=== PATIENT | male | born 1990 | race Caucasian/White ===

== ENCOUNTER 2016-08-23 10:27 | Emergency (ER) | payer OTHER ==
[2016-08-23] MEDS ORDERED: NORMAL SALINE 1,000 ML IV ONE (10:45)
[2016-08-23] MEDS ORDERED: MORPHINE SULFATE 4 MG/ML SYRG IV ONE ×3 (10:46→14:05)
[2016-08-23] MEDS ORDERED: PROMETHAZINE HCL 25 MG in DEXTROSE 5 % IN WATER 50 ML IV ONE ×2 (10:46)
[2016-08-23 10:59] LABS: Hematocrit 43.4 % (42.0-52.0); Hemoglobin 15.2 gm/dL (13.5-18.0); Mean Cell Volume 88.2 fl (78-100); Mean Corpuscular Hemoglobin 30.9 pg (27-31); Mean Platelet Volume 9.8 fl (6.0-9.5); Neutrophil # 1.7 K/mm3 (1.3-6.0); Neutrophil % 46.8 % (42-75.0); Platelet Count 179 K/mm3 (150-450); Red Blood Count 4.92 M/mm3 (4.7-6.0); Red Cell Distribution Width 11.9 % (11.5-14.0); White Blood Count 3.7 K/mm3 (4.0-10.5)
[2016-08-23] MEDS ORDERED: MORPHINE SULFATE 4 MG/ML SYRG ONE ×3 (11:18→14:03)
[2016-08-23 11:26] LABS: Albumin * 3.9 gm/dl (3.4-5.0); Anion Gap 12.6 mmol/L (6.8-13.8); BUN/Creatinine Ratio 12.2 (9.0-21.6); Bilirubin, Total 0.4 mg/dL (0.0-1.1); Ca. Corrected For Albumin 8.4 mg/dL (8.4-10.2); Calcium * 8.6 mg/dL (7.9-10.9); Carbon Dioxide 25.2 mmol/L (24-32.6); Potassium 3.8 mmol/L (3.4-4.6); Total Protein 7.6 gm/dL (6.2-8.2)
[2016-08-23] MEDS ORDERED: DIATRIZOATE MEGLU/DIATRIZO SOD 30 ML BTL ONE (11:35)
[2016-08-23] MEDS ORDERED: DIATRIZOATE MEGLU/DIATRIZO SOD 30 ML BTL PO ONE (11:38)
[2016-08-23 11:40] LABS: Urine Bilirubin Negative (NEGATIVE); Urine Blood Negative /ul (NEGATIVE); Urine Ketone Negative (NEGATIVE); Urine Nitrite Negative (NEGATIVE); Urine Protein Negative (NEGATIVE); Urine Specific Gravity 1.025 SP.GR. (1.005-1.030); Urine Urobilinogen Normal (NORMAL); Urine pH 6.5 pH (5.0-7.0)
[2016-08-23 11:55] LABS: Urine Appearance Clear; Urine Bacteria TRACE; Urine Color Yellow; Urine RBC None Seen /hpf (0-5); Urine WBC None Seen /hpf (0-5)
--- NOTE | 2016-08-23 14:51 | ERNOTE ---
Abdominal HPI - Narrative Date of Service: 08/23/16 - General Chief Complaint: Abdominal Pain Time Seen by Provider: 08/23/16 10:41 Source: patient Exam Limitations: no limitations - Immun/Allergies/Home Medications Immunizatons: IMMUNIZATION HX Immunizations Up to Date Yes History of Influenza Vaccine Yes Hx Pneumococcal Vaccination No Allergies/Adverse Reactions: Allergies erythromycin base [Erythromycin Base] Allergy (Severe, Verified 08/23/16 10:36) Swelling of Face guanfacine Allergy (Intermediate, Verified 08/23/16 10:36) Swelling of Throat Penicillins Allergy (Intermediate, Verified 08/23/16 10:36) Swelling of Tongue Home Medications: HOME MEDICATIONS ALPRAZolam [Xanax] 0.5 mg PO TID 10/08/14 [Last Taken Unknown] Dextroamphetamine/Amphetamine [Adderall 20 mg Tablet] 30 mg PO BID 10/08/14 [ Last Taken 10/08/14 09:00] Omeprazole [Prilosec] 40 mg PO DAILY 10/08/14 [Last Taken Unknown] Escitalopram Oxalate [Lexapro] 100 mg PO DAILY 01/02/15 [Last Taken Unknown] Benztropine Mesylate [Cogentin] 0.5 mg PO DAILY 06/21/16 [Last Taken Unknown] Haloperidol [Haldol] 5 mg PO BID 06/21/16 [Last Taken Unknown] Sertraline HCl [Zoloft] 100 mg PO DAILY 06/21/16 [Last Taken Unknown] Zolpidem Tartrate [Ambien] 5 mg PO HS 06/21/16 [Last Taken Unknown] Dicyclomine HCl [Bentyl] 10 mg PO TID PRN #20 tab 08/23/16 [Last Taken Unknown] Levofloxacin [Levaquin] 500 mg PO DAILY #10 tab 08/23/16 [Last Taken Unknown] - History of Present Illness Narrative: Patient presents to the ED for abdominal pain. He relates that he has been sick for 1.5-[address] Has been having abdominal pain all day today. Right sided. Nothing seemed to bring it on, cramping, can be severe but waxing and waning. no vomiting. States normal bowel movements. Has not seen anyone else for this. No CP or SOB. No fever. No dysuria. No other radiation of the pain. Timing: constant, other - waxing and waning Quality: severe Activities at Onset: none Modifying Factors - (Improves): Present: other - none Modifying Factors - (Worsens): Present: other - none Associated Symptoms: Absent: back pain, chest pain, diarrhea-gross blood, fever/ chills, shortness of breath Prior Abdominal Problems: Present: none Prior Treatment: Absent: recently seen Review of Systems - Review of Systems Constitutional: Absent: fever ENT: Present: sore throat Respiratory: Present: cough Cardiology: Absent: chest pain Gastrointestinal/Abdominal: Present: See HPI, abdominal pain Genitourinary: Absent: dysuria Musculoskeletal: Present: no symptoms reported Skin: Present: no symptoms reported Neurological: Present: no symptoms reported - Patient's Past Medical History Patient History - Medical: ADHD, Anxiety, Depression, GERD, Seizures, Other Patient History - Cardiac/Respiratory: No pertinent hx Patient History - Cancer: No Hx of Cancer Patient History - Surgical Procedures: EGD Patient History - Other: None - Social History Living Situations: home Does anyone smoke in the home?: Yes Smoking Status: Former smoker Alcohol Use: none Drug Use: none - Immunizations Immunizations Up to Date: Yes Hx Pneumococcal Vaccination: No History of Influenza Vaccine: Yes Physical Exam - Physical Exam General Appearance: Present: alert, no apparent distress Eye Exam: Normal inspection: bilateral, PERRL: bilateral Ears, Nose, Throat: Present: normal ENT inspection Neck: Present: normal inspection Respiratory: Present: no respiratory distress, normal breath sounds, no accessory muscle use, lungs clear, other - occasional productive cough Cardiovascular/Chest: Present: regular rate, rhythm Gastrointestinal/Abdominal: Present: normal bowel sounds, nondistended, soft, tenderness, other - Tenderness diffuse right side of abdomen. Right Lower quadrant most tender. No guarding or rebound. no peritoneal signs. Non- surgical exam. Male Genitals Exam: Present: normal genitalia. Absent: scrotum tenderness (L), testicular tenderness (L) Back Exam: Absent: CVA tenderness (R), CVA tenderness (L) Extremity Exam: Present: normal inspection Neurological Exam: Present: alert, no motor/sensory deficits, floor polisher II-XII nml as tested Skin Exam: Absent: skin rash ED Progress - Results and Orders Patient's Lab Results:: I have reviewed the patient's lab results. - Vital Signs Patient's Vital Signs:: I have reviewed the patient's vital signs. Vital Signs: Vital Signs 08/23/16 08/23/16 08/23/16 10:33 11:25 11:55 Temperature 36.4 C L Pulse Rate 98 84 74 Respiratory 16 18 18 Rate Blood Pressure 121/93 138/66 115/65 O2 Sat by Pulse 99 96 97 Oximetry - CT/Ultrasound CT/Ultrasound Narrative: I reviewed CT radiology report. - Progress/Reassessment Chief Complaint: Abdominal Pain Progress:: Improved Progress Note-Subjective: 08/23/16 14:46 Improved at 1446. No evidence of acute appendicitis. enteritis vs mesenteric adenitis. Non-surgical exam. Will cover with ABx given prolonged cough. Bentyl for cramping and close f/u. I discussed warnign signs and reasons to return as well as the need for close f/u. Stable, non-toxic, no distress. Departure - Departure Clinical Impression: Abdominal pain, Cough Disposition: Home self-care Condition: Stable Instructions: Abdominal Pain, Adult, [id number] Additional Instructions: See your doctor friday for a re-check. Rest. Fluids. Medications as directed. Return for fever, vomiting or if your condition worsens or changes in any way. Prescriptions: Dicyclomine HCl [Bentyl] 10 mg PO TID PRN #20 tab PRN Reason: Pain Levofloxacin [Levaquin] 500 mg PO DAILY #10 tab
[2016-08-23 15:30] VITALS: BP 119/66
== END 2016-08-23 16:00 | disposition home or self-care (01) ==
LOC: ER 10:27
DX: R10.9 Unspecified abdominal pain (principal); R05 Cough; Z87.891 Personal history of nicotine dependence; K21.9 Gastro-esophageal reflux disease without esophagitis; F41.9 Anxiety disorder, unspecified; F32.9 Major depressive disorder, single episode, unspecified; F90.9 Attention-deficit hyperactivity disorder, unspecified type

== ENCOUNTER 2016-11-08 11:10 | Emergency (ER) | payer OTHER ==
[2016-11-08 11:23] VITALS: BP 136/98
--- NOTE | 2016-11-08 11:43 | ERNOTE ---
Abdominal HPI - Narrative Date of Service: 11/08/16 - General Chief Complaint: Abdominal Pain Time Seen by Provider: 11/08/16 11:40 Source: patient, family - s.o. - Immun/Allergies/Home Medications Immunizatons: IMMUNIZATION HX Immunizations Up to Date Yes History of Influenza Vaccine Yes Hx Pneumococcal Vaccination No Allergies/Adverse Reactions: Allergies erythromycin base [Erythromycin Base] Allergy (Severe, Verified 08/23/16 10:36) Swelling of Face guanfacine Allergy (Intermediate, Verified 08/23/16 10:36) Swelling of Throat Penicillins Allergy (Intermediate, Verified 08/23/16 10:36) Swelling of Tongue ibuprofen Allergy (Verified 11/08/16 11:23) Home Medications: HOME MEDICATIONS Dextroamphetamine/Amphetamine [Adderall 20 mg Tablet] 30 mg PO BID 10/08/14 [ Last Taken 10/08/14 09:00] Haloperidol [Haldol] 5 mg PO BID 06/21/16 [Last Taken Unknown] Dexlansoprazole [Dexilant] 60 mg PO DAILY 11/08/16 [Last Taken Unknown] Mirtazapine [Mirtazapine (Remeron)] 15 mg PO DAILY 11/08/16 [Last Taken Unknown] Prazosin HCl 2 mg PO 11/08/16 [Last Taken Unknown] - History of Present Illness Narrative: R SIDE ABDOMINAL PAIN WITH NAUSEA, NO V. OR D. , STARTING 1 [employer]. NO FEVER. DENIES UTI SX. STATES HE WAS JUST UP AT [facility] AT [address] AVALOS HAD HIM DO SOME GI STUDY WHERE IS HAD TO SWALLOW CONTRAST. HE WAS THERE TO BE WORKED UP FOR COMPLAINTS OF SOME CHRONIC GERD SYMPTOMS " TO PREPARE FOR GI SURGERY". HE SAYS HE WAS OK ARIGHT AFTER THE STUDY AND HAD NOT PROBLEM UNTIL SHORTLY BEFORE COMING HERE. HE DID NOT EAT THIS MORNING BEFORE THE STUDY BUT DID HAVE SOME CHIPS AFTER THE STUDY. HE DOES NOT KNOW THE RESULTS OF THE STUDY. Review of Systems - Review of Systems Constitutional: Present: See HPI EYE: Present: no symptoms reported ENT: Present: no symptoms reported Respiratory: Present: no symptoms reported Cardiology: Present: no symptoms reported Gastrointestinal/Abdominal: Present: See HPI, nausea, abdominal pain Genitourinary: Present: no symptoms reported Musculoskeletal: Present: no symptoms reported Skin: Present: no symptoms reported Neurological: Present: no symptoms reported Endocrine: Present: no symptoms reported Hematologic/Lymphatic: Present: no symptoms reported Psych: Present: no symptoms reported All Other Systems: All systems neg except as marked - Patient's Past Medical History Patient History - Medical: ADHD, Anxiety, Depression, GERD, Seizures, Other Patient History - Cardiac/Respiratory: No pertinent hx Patient History - Cancer: No Hx of Cancer Patient History - Surgical Procedures: EGD Patient History - Other: None - Social History Living Situations: spouse Abuse History: No History of abuse Psych History: Hx of Anxiety, Hx of Depression Does anyone smoke in the home?: Yes Smoking Status: Current every day smoker Have you smoked in the past 12 months: Yes Alcohol Use: none Drug Use: none - Immunizations Immunizations Up to Date: Yes Hx Pneumococcal Vaccination: No History of Influenza Vaccine: Yes Physical Exam - Physical Exam General Appearance: Present: wd/wn, alert, mild distress - HOLD HIS RIGHT HAND UP AGAINST HIS RUQ. IS [place] OTHERWISE HEALTHY LOOKING YOUNG MAN WITH VSS. Respiratory: Present: no respiratory distress, normal breath sounds, no accessory muscle use, chest nontender, lungs clear Cardiovascular/Chest: Present: regular rate, rhythm, no murmur, normal peripheral pulses Gastrointestinal/Abdominal: Present: normal bowel sounds, nondistended, soft, no organomegaly, tenderness - MILD R UQ TENDERNESS WITH MINIMAL GUARDING AND NO REBOUND. ABD = NORMAL TO PERCUSSION. Back Exam: Present: normal inspection, normal range of motion, no CVA tenderness , no vertebral tenderness Neurological Exam: Present: alert, oriented Skin Exam: Present: normal color ED Progress - Results and Orders Patient's Lab Results:: I have reviewed the patient's lab results. Results and Orders: LABS AND URINE ARE NORMAL EXCEPT FOR GLUC = 121 - Vital Signs Vital Signs: Vital Signs 11/08/16 11:18 Temperature 36.7 C Pulse Rate 108 H Respiratory 16 Rate Blood Pressure 136/98 O2 Sat by Pulse 96 Oximetry - X-Ray X-Ray #1 X-Ray: abdomen Interpretation: Reviewed by me - RETAINED CONTRAST , PRESUMABLY FROM STUDY DONE EARLIER THIS MORNING IN [place], WITH NO ABNORMALITY NOTED. - Progress/Reassessment Chief Complaint: Abdominal Pain Plan - Plan Plan: WHEN I WENT TO ORDER HIM A GI COCKTAIL THE NURSES TOLD ME HE AND HIS SIG. OTHER HAD WALKED OUT. OTHERS FAMILIAR WITH THEM REPORTED THAT THEY HAVE A HISTORY OF SHOPPING FOR DOCTORS TO GIVE THEM PAIN MEDS. THOUGH THEY DID NOT EXPRESS A WISH TO BE GIVEN THEM TODAY FROM ME. Departure - Departure Clinical Impression: Right upper quadrant abdominal pain Disposition: Against medical advice Additional Instructions: PT ELOPED BEFORE I COULD GIVE THEM RESULTS OF THE XRAY AND LABS.
[2016-11-08 11:45] LABS: Hematocrit 41.1 % (42.0-52.0); Hemoglobin 14.8 gm/dL (13.5-18.0); Mean Cell Volume 85.1 fl (78-100); Mean Corpuscular Hemoglobin 30.6 pg (27-31); Mean Platelet Volume 9.6 fl (6.0-9.5); Neutrophil # 2.7 K/mm3 (1.3-6.0); Neutrophil % 54.2 % (42-75.0); Platelet Count 183 K/mm3 (150-450); Red Blood Count 4.83 M/mm3 (4.7-6.0); Red Cell Distribution Width 11.9 % (11.5-14.0); White Blood Count 5.1 K/mm3 (4.0-10.5)
[2016-11-08 11:46] LABS: Urine Bilirubin Negative (NEGATIVE); Urine Blood Negative /ul (NEGATIVE); Urine Ketone Negative (NEGATIVE); Urine Nitrite Negative (NEGATIVE); Urine Protein Negative (NEGATIVE); Urine Specific Gravity >=1.030 SP.GR. (1.005-1.030); Urine Urobilinogen Normal (NORMAL)
[2016-11-08 11:56] LABS: Urine Appearance Clear; Urine Bacteria None Seen; Urine Color Yellow; Urine RBC None Seen /hpf (0-5); Urine WBC None Seen /hpf (0-5)
[2016-11-08 11:58] LABS: Albumin * 4.3 gm/dl (3.4-5.0); BUN/Creatinine Ratio 7.9 (9.0-21.6); Bilirubin, Total 0.7 mg/dL (0.0-1.1); Calcium * 8.6 mg/dL (7.9-10.9); Carbon Dioxide 28.9 mmol/L (24-32.6); Potassium 3.9 mmol/L (3.4-4.6); Total Protein 7.5 gm/dL (6.2-8.2)
--- OUTSIDE RECORDS SUMMARY | 2016-11-08 12:08 | XMS REPORT | Continuity of Care Document ---
:1990 Author Organization [facility] [place] [address] Care Team Providers Name Role Phone Provider, None Per Patient Primary Care Provider Unavailable Source Comments This disclosure is being made pursuant to the [employer] program and maynot contain all information available regarding this patient.[facility] Active Allergies and Adverse Reactions Allergen Noted Date Severity Reactions Comments Erythromycin 06/03/2015 Low Rash Guaifenex G 06/03/2015 Other (See Comments) Penicillins 06/03/2015 Low Rash Current Medications Be aware that medications may not be up to date as of this document. Alwaysverify current medications with the patient. Prescription Sig. Disp. Refills Start Date End Date Status ARIPiprazole (ABILIFY) Take 1 tablet by 30 tablet 0 06/06/2015 Active 5 MG tablet mouth daily. escitalopram (LEXAPRO) Take 1 tablet by 30 tablet 0 06/06/2015 Active 10 MG tablet mouth daily. Active Problems Problem Noted Date Marijuana abuse 06/06/2015 Psychosis 06/04/2015 Social History Tobacco Use Types Packs/Day Years Used Date Current Every Day Smoker Alcohol Use Drinks/Week oz/Week Comments Yes 1-2 times per month Last Filed Vital Signs Vital Sign Reading Time Taken Blood Pressure 127/70 06/06/2015 8:01 AM [employer] Pulse 97 06/06/2015 8:01 AM [employer] Temperature 36.3 C (97.3 F) 06/06/2015 8:00 AM [employer] Respiratory Rate 14 06/06/2015 8:00 AM [employer] Height 1.71 m (5' 7.32") 06/03/2015 5:00 AM [employer] Weight 70.7 kg (155 lb 13.8 oz) 06/03/2015 5:00 AM [employer] Body Mass Index 24.18 06/03/2015 5:00 AM [employer] Oxygen Saturation - - Plan of Care Health Maintenance Due Date Last Done Comments HPV Vaccine (9-26YO) (1 of 3 - Male 3 Dose Series) 2003 Tetanus/Pertussis (1 - Tdap) 2011 Retired-INFLUENZA VACCINE 03/28/2016 Results from Last 3 Months Not on file
--- OUTSIDE RECORDS SUMMARY | 2016-11-08 12:09 | XMS REPORT | Continuity of Care Document ---
:1990 Author Organization [facility] ([facility]) [place] [address] Phone [phone] Care Team Providers Name Role Phone [facility] Primary Care Provider [phone] Source Comments This disclosure is being made pursuant to the Care Everywhere program, applicable federal and state laws, and may not contain all informaitonavailable regarding this patient.[facility] ([facility]) Active Allergies and Adverse Reactions Allergen Noted Date Severity Reactions Comments Erythromycin 07/27/2011 Upper Airway Edema,Rash Guaifenesin-Sodium Citrate 10/03/2014 Bradycardia Penicillins 07/27/2011 Upper Airway Edema,Rash Current Medications Prescription Sig. Disp. Refills Start Date End Date Status ALPRAZolam 0.5 mg Take 0.5 mg by mouth Active tablet 2 times daily as needed. Indications: ANXIETY, Seizures albuterol 90 Use 2 Puffs by Active mcg/Actuation inhalation every 6 inhaler hours as needed. dextroamphetamine-am Take 40 mg by mouth Active phetamine 20 mg 2 times daily. tablet Indications: ATTENTION-DEFICIT HYPERACTIVITY DISORDER lurasidone (LATUDA) Take 60 mg by mouth Active 60 mg tablet daily. Take with food. Indications: Mood stabilization DULoxetine 30 mg XR Take 30 mg by mouth Active capsule at bedtime. Tapering this medication to off; 5 days of therapy remaining as of 10/24/14. omeprazole 40 mg Take 40 mg by mouth Active enteric coated daily. Indications: capsule HEARTBURN traZODone 150 mg Take 225 mg by mouth Active tablet at bedtime. Indications: Insomnia escitalopram oxalate Take 1 Tab by mouth 30 Tab 3 10/26/2014 Active 20 mg tablet daily. Indications: ANXIETY WITH DEPRESSION hydrOXYzine HCl 25 Take 1 Tab by mouth 90 Tab 0 10/25/2014 Active mg tablet every 6 hours as needed. Indications: ANXIETY HYDROcodone-acetamin Take 1-2 tablets by 20 tablet 0 10/04/2015 Active ophen 5-325 mg per mouth every 6 hours tablet as needed for pain. HYDROcodone-acetamin Take 1-2 tablets by 10 tablet 0 07/30/2016 Active ophen 5-325 mg per mouth every 6 hours tablet as needed for pain. Active Problems Problem Noted Date Abdominal pain, right lower quadrant 08/15/2016 Conversion disorder 10/25/2014 Panic disorder without agoraphobia 10/25/2014 Suicidal intent 07/27/2011 Depression 07/27/2011 Most Recent Encounters Date Type Specialty Providers Description 08/15/2016 Hospital Encounter Emergency Medicine Noreen Lundy, Dx: Abdominal pain, MD right lower quadrant (Primary Dx) Immunizations Name Dates Previously Given Next Due Influenza, PF 07/31/2011 Social History Tobacco Use Types Packs/Day Years Used Date Current Every Day Smoker Cigarettes 1 10 Smokeless Tobacco: Never Used Tobacco Cessation:Ready to Quit: No; Counseling Given: Yes Comments: Last Filed Vital Signs Vital Sign Reading Time Taken Blood Pressure 140/97 08/15/2016 4:58 PM TAPE CUTTING MACHINE OPERATOR Pulse 105 08/15/2016 4:58 PM TAPE CUTTING MACHINE OPERATOR Temperature 37 C (98.6 F) 08/15/2016 4:58 PM TAPE CUTTING MACHINE OPERATOR Respiratory Rate 14 08/15/2016 4:58 PM TAPE CUTTING MACHINE OPERATOR Height 1.702 m (5' 7") 10/04/2015 12:52 PM TAPE CUTTING MACHINE OPERATOR Weight 71.668 kg (158 lb) 10/04/2015 12:52 PM TAPE CUTTING MACHINE OPERATOR Body Mass Index 24.74 10/04/2015 12:52 PM TAPE CUTTING MACHINE OPERATOR Oxygen Saturation 97% 08/15/2016 4:58 PM TAPE CUTTING MACHINE OPERATOR Plan of Care Health Maintenance Due Date Last Done Comments Hepatitis B Vaccine (1 of 3 - Primary Series) 1990 HPV Vaccine (1 of 3 - Male 3 Dose Series) 2003 Tdap Vaccine 2003 Lipid Disorder Screening 2010 MMR Vaccine 2010 Td Vaccine 2010 Varicella Vaccine (1 of 2 - Adult - No Evidence of 2010 Immunity) Pneumococcal Vaccine (1 of 1 - PPSV23) 2011 Influenza Vaccine: Seasonal (#1) 02/26/2016 07/31/2011 Results from Last [address] ABDOMEN& PELVIS W CONTRAST (47150) (08/15/2016 7:35 PM) Impressions Impression: 1. No CT evidence of acute appendicitis. 2. Slight mesenteric fat stranding in the anterior right mid abdomen, nonspecific. Appearance does not favor epiploic appendagitis. 3. 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 This final report is in agreement with the critical and emergent preliminary findings reported by the vice president planning environmental field technician. Narrative Procedure: CT ABDOMEN & PELVIS W CONTRAST ([id number]) Clinical Indication: Abdominal pain, right lower quadrant. Possible appendicitis. Technique: CT exam of the abdomen and pelvis is performed following the uneventful administration of 97 cc Isovue-370 IV contrast. Comparison: None. Findings: Lower chest: The visualized lung bases are clear. Liver: Normal Bile ducts: Not dilated. Gallbladder: Normal. Pancreas: Normal Spleen: Normal Adrenal glands: Normal Kidneys: 8 mm cyst in lower pole of right kidney. 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 Ureters: Normal Bladder: Normal Aorta: Normal Retroperitoneum: No lymphadenopathy. Peritoneum: No ascites. No free air. Mesentery: Subcentimeter lymph nodes in the right lower quadrant for example on image [id number] there is a lymph node that measures 9 mm. Slight mesenteric or omental fat stranding in the anterior right mid abdomen. Stomach: Not distended. Small bowel: Not distended. Colon: Not distended. Appendix: Normal (4-46). Extraperitoneal pelvis: No lymphadenopathy. Prostate: Not enlarged. Abdominal wall: Normal Bones: No acute fracture or destructive bone lesion. Procedure Note Waldo, Incoming Imaging Results - FriAug 16, 2016 7:03 PM TAPE CUTTING MACHINE OPERATOR Procedure: CT ABDOMEN & PELVIS W CONTRAST ([id number]) Clinical Indication: Abdominal pain, right lower quadrant. Possible appendicitis. Technique: CT exam of the abdomen and pelvis is performed following the uneventful administration of 97 cc Isovue-370 IV contrast. Comparison: None. Findings: Lower chest: The visualized lung bases are clear. Liver: Normal Bile ducts: Not dilated. Gallbladder: Normal. Pancreas: Normal Spleen: Normal Adrenal glands: Normal Kidneys: 8 mm cyst in lower pole of right kidney. 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 Ureters: Normal Bladder: Normal Aorta: Normal Retroperitoneum: No lymphadenopathy. Peritoneum: No ascites. No free air. Mesentery: Subcentimeter lymph nodes in the right lower quadrant for example on image [id number] there is a lymph node that measures 9 mm. Slight mesenteric or omental fat stranding in the anterior right mid abdomen. Stomach: Not distended. Small bowel: Not distended. Colon: Not distended. Appendix: Normal (4-46). Extraperitoneal pelvis: No lymphadenopathy. Prostate: Not enlarged. Abdominal wall: Normal Bones: No acute fracture or destructive bone lesion. IMPRESSION Impression: 1. No CT evidence of acute appendicitis. 2. Slight mesenteric fat stranding in the anterior right mid abdomen, nonspecific. Appearance does not favor epiploic appendagitis. 3. 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 This final report is in agreement with the critical and emergent preliminary findings reported by the vice president planning environmental field technician. MICROSCOPIC URINALYSIS (08/15/2016 5:41 PM) Component Value Range White Blood Cells, Urine 1 0-5 /HPF Red Blood Cells, Urine <1 0-2 /HPF Specimen Urine URINALYSIS WITH REFLEX CULTURE (08/15/2016 5:41 PM) Component Value Range Color, Urine Yellow Straw, Pale Yellow, Yellow, Clear, None Clarity, Urine Clear Clear pH, Urine 7.0 <9.0 Spec [place], Urine 1.020 1.000-1.030 Glucose, Urine Negative Negative Blood, Urine Negative Negative Ketones, Urine Negative Negative Protein, Urine Negative Negative Urobilinogen, Urine 2+(A) Normal Bilirubin, Urine Negative Negative Leukocyte Esterase, Urine Negative Negative Nitrite, Urine Negative Negative Specimen Urine URINALYSIS WITH REFLEXED CULTURE AND MICROSCOPIC EXAM (08/15/2016 5:41 PM) Specimen Culture - Urine, Midstream clean catch Narrative The following orders were created for panel order URINALYSIS WITH REFLEXED CULTURE AND MICROSCOPIC EXAM. Procedure Abnormality Status --------- ------ URINALYSIS WITH REFLEX C...[[id number]]AbnormalFinal result MICROSCOPIC URINALYSIS[[id number]] Normal Final result URINE CULTURE, REFLEXED[[id number]] Please view results for these tests on the individual orders. DIFFERENTIAL (08/15/2016 5:40 PM) Component Value Range % Neutrophils-Auto Diff 57.7 % Neutrophils-Auto Diff 3800 5738-3247 /MM3 % Lymphocytes-Auto Diff 33.1 % Lymphocytes-Auto Diff 2180 875-3300 /MM3 % Monocytes-Auto Diff 7.0 % Monocytes-Auto Diff 460 130-860 /MM3 % Eosinophils-Auto Diff 1.4 % Eosinophils-Auto Diff 90 40-390 /MM3 % Basophils 0.5 % Basophils-Auto Diff 30 10-136 /MM3 % Immature Granulocytes-Auto Diff 0.3 % Immature Granulocytes-Auto Diff 20 /MM3 Specimen Whole Blood CBC (COMPLETE BLOOD COUNT) (08/15/2016 5:40 PM) Component Value Range WBC Count 6.6 3.7-10.5 K/MM3 RBC Count 4.64 4.50-6.20 M/MM3 Hemoglobin 14.7 13.2-17.7 g/dL Hematocrit 41 40-52 % MCV (Mean Corpuscular Volume) 88 82-99 FL MCH (Mean Corpuscular Hemoglobin) 32 25-35 PG MCHC (Mean Corpuscular Hemoglobin Concentration) 36 32-36 % Platelet Count 170 150-400 K/MM3 MPV (Mean Platelet Volume) 10.4 9.4-12.3 FL RBC Dist Width-STD 38.6 35.1-43.9 FL RBC Distrib Width 11.9 9.0-14.5 % Nucleated RBC 0 /100 WBC Specimen Whole Blood LACTIC ACID, WHOLE BLOOD ([facility]) (08/15/2016 5:40 PM) Component Value Range Lactic Acid, Whole Blood 1.2Comment: 0.5-2.0 mEq/L Glycolate, the principle toxic metabolite of ethylene glycol, can cause artifactual elevation of measured lactate. Specimen Blood PT/INR (PROTHROMBIN TIME/INR) VENOUS (08/15/2016 5:40 PM) Component Value Range PT (Prothrombin Time) 10 9-12 secs INR 1.0 <4.0 Specimen Blood PTT (PARTIAL THROMBOPLASTIN TIME) (08/15/2016 5:40 PM) Component Value Range PTT 26 22-31 secs Specimen Blood LIVER PANEL (08/15/2016 5:40 PM) Component Value Range Bilirubin Total 0.5 <=1.2 mg/dL AST 38Comment: 0-40 U/L Adult reference ranges updated on 11/26/13 at 830am ALT 56(H)Comment: 0-41 U/L The upper limit of normal for alanine aminotransferase (ALT) reference ranges for adults is controversial with some authorities recommending limit as low as 30 U/L for males and 19 U/L for females. Th ere is increased incidence of subclinical liver disease (e.g., early steatohepatitis) in patients with ALT values in the range of 31-41 U/L for males and 20-33 U/L for females. ALT values should alway s be interpreted in conjunction with clinical history, physical examination findings, and, if applicable, data from other diagnostic tests. ALP 56 40-129 U/L GGT 99(H) 8-61 U/L Albumin 4.4 3.4-4.8 g/dL Total Protein 7.4 6.0-8.0 g/dL Specimen Blood ERYTHROCYTE SEDIMENTATION RATE (08/15/2016 5:40 PM) Component Value Range ESR (Erythrocyte Sedimentation Rate) 2 0-15 mm/Hr Specimen Whole Blood C-REACTIVE PROTEIN (08/15/2016 5:40 PM) Component Value Range CRP (C-Reactive Protein) <0.5 <=0.5 mg/dL Specimen Blood CBC WITH DIFFERENTIAL (08/15/2016 5:40 PM) Specimen Whole Blood Narrative The following orders were created for panel order CBC WITH DIFFERENTIAL. Procedure Abnormality Status --------- ------ CBC (COMPLETE BLOOD COUNT)[[id number]] Final result DIFFERENTIAL[[id number]] Final result Please view results for these tests on the individual orders. BASIC METABOLIC PANEL W/ CALCIUM (CHEM 8) (08/15/2016 5:40 PM) Component Value Range Sodium 141 135-145 mEq/L Chloride 104 95-107 mEq/L CO2 24 22-29 mEq/L Anion Gap 13 8-18 mEq/L BUN 11 10-20 mg/dL Creatinine 0.9Comment: 0.6-1.2 mg/dL Creatinine switched to enzymatic method on 12/04/2010.GFR equation switched to IDMS-traceable MDRD equation on 12/04/2010. Calculated GFR values are not valid in clinical settings where serum creatinine is changing. Glucose 97Comment: 65-99 mg/dL The Expert Committee on the Diagnosis and Classification of Diabetes has defined impaired fasting glucose as greater than or equal to 100 mg/dL but less than 126 mg/dL.(Diabetes Care 28 (Suppl 1)S41,2005) Calcium 9.0 8.5-10.5 mg/dL Potassium Hemolyzed(A)Comment: mEq/L For inpatient phlebotomy redraws, please contact pager #[phone] between the hours of 05:00 to 13:00. Calculated GFR >90 >60 mL/min/1.73 m2 Specimen Blood
--- OUTSIDE RECORDS SUMMARY | 2016-11-08 12:09 | XMS REPORT | Summary of Care ---
:1990 Author Organization [facility] Team Providers Name Role Phone Physician, No PCP Primary Care Physician Unavailable Problem List Condition Effective Dates Status Health Status Informant Asthma(Confirmed) Active patient ADHD (attention deficit hyperactivity Active patient disorder)(Confirmed) Pseudoseizures(Confirmed) Active patient Dissociative disorder or Active patient reaction(Confirmed) GERD (gastroesophageal reflux Active patient disease)(Confirmed) Depression with anxiety(Confirmed) Active patient PTSD (post-traumatic stress Active patient disorder)(Confirmed) Encounter 12/17/14 - 12/21/14 [place] [address]- [facility] Discharge Disposition: Discharged to Home or Self Care Attending Physician: oRsalee Camara NP Admitting Physician: Jonathan HA, Kian Leary Vital Signs Most recent to oldest (Reference Range): 1 Respiratory Rate (12-18 Br PM) 18 Br PM (12/21/14 7:00 AM) Most recent to oldest (Reference Range): 1 Pulse Rate (60-100 BPM) 92 BPM (12/21/14 8:06 AM) Most recent to oldest (Reference Range): 1 Blood Pressure (90-140/65-90 mmHg) 122/71mmHg (12/21/14 7:00 AM) Most recent to oldest (Reference Range): 1 Temperature Celsius (36.1-38 Degrees C) 36.6 Degrees C (12/21/14 7:00 AM) Most recent to oldest (Reference Range): 1 Height 170.18 cm (12/17/14 10:55 PM) Most recent to oldest (Reference Range): 1 Weight 67.9 kg (12/17/14 11:15 PM) Most recent to oldest (Reference Range): 1 Body Mass Index 23 kg/m2 (12/17/14 10:55 PM) Allergies, Adverse Reactions, Alerts Substance Reaction Severity Status erythromycin Active penicillins Swelling of throat Active Medications ALPRAZolam (Xanax 0.5 mg oral tablet) 1 Tab, By Mouth, 3 Times a day, As Needed, Anxiety, Refills: 0 amphetamine-dextroamphetamine (Adderall) 20 mg, By Mouth, Twice a day, with breakfast and lunch, Refills: 0 ARIPiprazole (ARIPiprazole 5 mg oral tablet) 1 Tab, By Mouth, once a day, Refills: 1 Ordering provider: Rosalee Camara NP cyclobenzaprine (Flexeril) 10 mg, By Mouth, 3 Times a day, As Needed, Pain/Discomfort, Refills: 0 escitalopram (Lexapro) 20 mg, By Mouth, once a day, Refills: 0 HydrOXYzine 25 mg, By Mouth, every 6 hours, Refills: 0 omeprazole (PriLOSEC Tab) 40 mg, By Mouth, once a day, Refills: 0 prazosin (prazosin 1 mg oral capsule) 1 Cap, By Mouth, once a day, Refills: 0 TraZODone (traZODone 150 mg oral tablet) 2 Tab, By Mouth, Bedtime, Refills: 0 Ordering provider: Rosalee Camara NP Results No data available for this section Immunizations Vaccine Date Refusal Reason influenza virus vaccine 05/28/14 Procedures Procedure Date Related Diagnosis Body Site [place] tooth 2013 Social History No data available for this section Assessment and Plan No data available for this section
== END 2016-11-08 12:15 | disposition left against medical advice (07) ==
LOC: ER 11:10
DX: R10.11 Right upper quadrant pain (principal); Z72.0 Tobacco use; K21.9 Gastro-esophageal reflux disease without esophagitis; F41.8 Other specified anxiety disorders; Z53.29 Procedure and treatment not carried out because of patient's decision for other reasons

== ENCOUNTER 2016-12-31 12:57 | Emergency (ER) | payer OTHER ==
[2016-12-31 13:05] VITALS: BP 146/81
--- OUTSIDE RECORDS SUMMARY | 2016-12-31 13:25 | XMS REPORT | Continuity of Care Document ---
:1990 Author Organization [employer] [place] [address] Care Team Providers Name Role Phone Provider, None Per Patient Primary Care Provider Unavailable Source Comments This disclosure is being made pursuant to the [employer] program and maynot contain all information available regarding this patient.[employer] Active Allergies and Adverse Reactions Allergen Noted [...] Taken Blood Pressure 127/70 06/06/2015 8:01 AM JOINER APPRENTICE Pulse 97 06/06/2015 8:01 AM JOINER APPRENTICE Temperature 36.3 C (97.3 F) 06/06/2015 8:00 AM JOINER APPRENTICE Respiratory Rate 14 06/06/2015 8:00 AM JOINER APPRENTICE Height 1.71 m (5' 7.32") 06/03/2015 5:00 AM JOINER APPRENTICE Weight 70.7 kg (155 lb 13.8 oz) 06/03/2015 5:00 AM JOINER APPRENTICE Body Mass Index 24.18 06/03/2015 5:00 AM JOINER APPRENTICE Oxygen Saturation - - Plan of Care Health Maintenance Due Date Last Done Comments HPV Vaccine (9-26YO) (1 of 3 - Male 3 Dose Series) 2003 Tetanus/Pertussis (1 - Tdap) 2011 Retired-INFLUENZA VACCINE 03/28/2016 Results from Last 3 Months Not on file
--- OUTSIDE RECORDS SUMMARY | 2016-12-31 13:25 | XMS REPORT | Continuity of Care Document ---
:1990 Author Organization [facility] ([facility]) Address [place] [address] Phone [phone] Care Team Providers Name Role Phone Kevin-[facility] Primary Care Provider [phone] Source Comments This disclosure is being made pursuant to the Care Everywhere program, applicable federal and state laws, and may not contain all informaitonavailable regarding this patient.[facility] ([facility]) Active Allergies and Adverse Reactions Allergen Noted Date Severity Reactions Comments Erythromycin 07/27/2011 Upper Airway Edema,Rash Guaifenesin-Sodium Citrate 10/03/2014 Bradycardia Penicillins 07/27/2011 Upper Airway Edema,Rash Current Medications Prescription Sig. Disp. Refills Start Date End Date Status ALPRAZolam 0.5 mg Take 0.5 mg by Active tablet mouth 2 times daily as needed. Indications: ANXIETY, Seizures albuterol 90 Use 2 Puffs by Active mcg/Actuation inhaler inhalation every 6 hours as needed. dextroamphetamine-amp Take 40 mg by mouth Active hetamine 20 mg tablet 2 times daily. Indications: ATTENTION-DEFICIT HYPERACTIVITY DISORDER lurasidone (LATUDA) Take [...] traZODone 150 mg Take 225 mg by Active tablet mouth at bedtime. Indications: Insomnia escitalopram oxalate Take 1 Tab by mouth 30 Tab 3 10/26/2014 Active 20 mg tablet daily. Indications: ANXIETY WITH DEPRESSION hydrOXYzine HCl 25 mg Take 1 Tab by mouth 90 Tab 0 10/25/2014 Active tablet every 6 hours as needed. Indications: ANXIETY HYDROcodone-acetamino Take 1-2 tablets by 20 tablet 0 10/04/2015 Active phen 5-325 mg per mouth every 6 hours tablet as needed for pain. HYDROcodone-acetamino Take 1-2 tablets by 10 tablet 0 07/30/2016 Active phen 5-325 mg per mouth every 6 hours tablet as needed for pain. ondansetron 4 mg Take 1 tablet (4 mg 6 tablet 0 11/10/2016 Active disintegrating tablet total) by mouth every 6 hours as needed. Active Problems Problem Noted Date Abdominal pain, right lower quadrant 08/15/2016 Conversion disorder 10/25/2014 Panic disorder without agoraphobia 10/25/2014 Suicidal intent 07/27/2011 Depression 07/27/2011 Most Recent Encounters Date Type Specialty Providers Description 11/10/2016 Hospital Encounter Emergency Medicine Elva Bush, Dx: SABINE pain (Primary Dx) Immunizations Name Dates Previously Given Next Due Influenza, PF 07/31/2011 Social History Tobacco Use Types Packs/Day Years Used Date Current Every Day Smoker Cigarettes 1 10 Smokeless Tobacco: Never Used Tobacco Cessation:Ready to Quit: No; Counseling Given: Yes Comments: Last Filed Vital Signs Vital Sign Reading Time Taken Blood Pressure 139/85 11/10/2016 6:07 PM CDT Pulse 83 11/10/2016 6:07 PM CDT Temperature 36.4 C (97.5 F) 11/10/2016 6:07 PM CDT Respiratory Rate 16 11/10/2016 6:07 PM CDT Height 1.702 m (5' 7") 10/04/2015 12:52 PM STAFF COUNSEL Weight 71.668 kg (158 lb) 10/04/2015 12:52 PM STAFF COUNSEL Body Mass Index 24.74 10/04/2015 12:52 PM STAFF COUNSEL Oxygen Saturation 97% 11/10/2016 6:07 PM CDT Plan of Care Health Maintenance Due Date Last Done Comments Hepatitis B Vaccine (1 of 3 - 1990 Primary Series) Tdap Vaccine 2003 Lipid Disorder Screening 2010 MMR Vaccine 2010 Td Vaccine 2010 Varicella Vaccine (1 of 2 - Adult 2010 - No Evidence of Immunity) Pneumococcal Vaccine (1 of 1 - 2011 PPSV23) Influenza Vaccine: Seasonal 02/25/2017 07/31/2011 (Season Ended) HPV Vaccine Aged Out No longer eligible based on patient's age to complete this topic Results from Last 3 Months US ABDOMEN LIMITED (36551) (11/10/2016 5:06 PM) Impressions Impression: 1. Grossly normal RUQ ultrasound. 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 --- Final --- Narrative [facility] Department of Radiology Ultrasound Division [address] [place] [address] ULTRASOUND REPORT NAME:AROLDO TRAVIS Date of Service: 11/10/2016 MRN NO.: [id number] Review Date: 11/11/2016 Patient's : 1990 Resident/Tech: [id number] Katerina Deluna Patient's Age: 26 years Referring MD:TIAN LOWRY Indication: RUQ pain, gall stone on POCUS, eval for cholecystitis Technique: Right upper quadrant grayscale ultrasound. Comparison: None. Findings: Liver: +---------+ + +-------+ + :Size (cm):Echogenicity:Echotexture:Shape:Vascularity: +---------+ + +-------+ + :16.3 :Normal. :Normal.:Normal.:Normal.: +---------+ + +-------+ + Gallbladder: The gallbladder is normal in size, shape, and wall thickness without stones, sludge or masses. There is no pericholecystic fluid. Sonographic Mitchell's sign was negative. + +-----+ :Gallbladder wall:2 mm.: + +-----+ Spleen: The spleen is normal in size and appearance. Spleen measures 7.2 x 4.9 x 7.8 cm. Pancreas: The pancreas is not well visualized. Procedure Note Waldo, Incoming Imaging Results - FriNov 11, 2016 10:33 AM CDT [facility] Department of Radiology Ultrasound Division [address] [place] [address] ULTRASOUND REPORT NAME: AROLDO TRAVIS Date of Service: 11/10/2016 MRN NO.: [id number] Review Date: 11/11/2016 Patient's : 1990 Resident/Tech: [id number] Katerina Deluna Patient's Age: 26 years Referring MD: TIAN LOWRY Indication: RUQ pain, gall stone on POCUS, eval for cholecystitis Technique: Right upper quadrant grayscale ultrasound. Comparison: None. Findings: Liver: +---------+ + +-------+ + :Size (cm):Echogenicity:Echotexture:Shape :Vascularity: +---------+ + +-------+ + :16.3 :Normal. :Normal. :Normal.:Normal. : +---------+ + +-------+ + Gallbladder: The gallbladder is normal in size, shape, and wall thickness withoutstones, sludge or masses. There is no pericholecystic fluid. Sonographic Mitchell'ssign was negative. + +-----+ :Gallbladder wall:2 mm.: + +-----+ Spleen: The spleen is normal in size and appearance. Spleen measures 7.2 x 4.9 x7.8 cm. Pancreas: The pancreas is not well visualized. IMPRESSION Impression: 1. Grossly normal RUQ ultrasound. This final report is in agreement with the critical and emergentpreliminary findings reported by the secretary to the vice president electrical contractor. --- Final --- DIFFERENTIAL (11/10/2016 3:44 PM) Component Value Range % Neutrophils-Auto Diff 61.8 % Neutrophils-Auto Diff 4170 1242-7224 /MM3 % Lymphocytes-Auto Diff 29.7 % Lymphocytes-Auto Diff 2000 875-3300 /MM3 % Monocytes-Auto Diff 6.4 % Monocytes-Auto Diff 430 130-860 /MM3 % Eosinophils-Auto Diff 0.9 % Eosinophils-Auto Diff 60 40-390 /MM3 % Basophils 0.6 % Basophils-Auto Diff 40 10-136 /MM3 % Immature Granulocytes-Auto Diff 0.6 % Immature Granulocytes-Auto Diff 40 /MM3 Specimen Whole Blood CBC (COMPLETE BLOOD COUNT) (11/10/2016 3:44 PM) Component Value Range WBC Count 6.7 3.7-10.5 K/MM3 RBC Count 4.91 4.50-6.20 M/MM3 Hemoglobin 15.4 13.2-17.7 g/dL Hematocrit 42 40-52 % MCV (Mean Corpuscular Volume) 85 82-99 FL MCH (Mean Corpuscular Hemoglobin) 31 25-35 PG MCHC (Mean Corpuscular Hemoglobin Concentration) 37(H) 32-36 % Platelet Count 196 150-400 K/MM3 MPV (Mean Platelet Volume) 10.1 9.4-12.3 FL RBC Dist Width-STD 37.4 35.1-43.9 FL RBC Distrib Width 12.4 9.0-14.5 % Nucleated RBC 0 /100 WBC Specimen Whole Blood AMYLASE (11/10/2016 3:44 PM) Component Value Range Amylase 59Comment: 0-100 U/L Amylase assay methodology and reference range changed 11/16/09. Specimen Blood LIPASE (11/10/2016 3:44 PM) Component Value Range Lipase 44 13-60 U/L Specimen Blood COMPREHENSIVE METABOLIC PANEL (CMP) (11/10/2016 3:44 PM) Component Value Range Sodium 140 135-145 mEq/L Chloride 101 95-107 mEq/L CO2 24 22-29 mEq/L BUN 9(L) 10-20 mg/dL Creatinine 0.8Comment: 0.6-1.2 mg/dL Creatinine switched to enzymatic method on 12/04/2010.GFR equation switched to IDMS-traceable MDRD equation on 12/04/2010. Calculated GFR values are not valid in clinical settings where serum creatinine is changing. Glucose 116(H)Comment: 65-99 mg/dL The Expert Committee on the Diagnosis and Classification of Diabetes has defined impaired fasting glucose as greater than or equal to 100 mg/dL but less than 126 mg/dL.(Diabetes Care 28 (Suppl 1)S41,2005) Calcium 9.2 8.5-10.5 mg/dL Total Protein 7.2 6.0-8.0 g/dL Albumin 4.5 3.4-4.8 g/dL AST 27Comment: 0-40 U/L Adult reference ranges updated on 06/22/13 at 830am ALP 57 40-129 U/L Bilirubin Total 0.5 <=1.2 mg/dL ALT 24Comment: 0-41 U/L The upper limit of normal [...] if applicable, data from other diagnostic tests. Potassium Hemolyzed(A)Comment: mEq/L For inpatient phlebotomy redraws, please contact pager #[phone] between the hours of 05:00 to 13:00. Anion Gap 15 mEq/L Calculated GFR >90 >60 mL/min/1.73 m2 Specimen Blood CBC WITH DIFFERENTIAL (11/10/2016 3:44 PM) Specimen Whole Blood Narrative The following orders were created for panel order CBC WITH DIFFERENTIAL. Procedure Abnormality Status --------- ------ CBC (COMPLETE BLOOD COUNT)[[id number]] AbnormalFinal result DIFFERENTIAL[[id number]] Final result Please view results for these tests on the individual orders.
--- NOTE | 2016-12-31 13:39 | ERNOTE ---
ER Male HPI Stated Complaint: HIT IN GROIN WITH BASEBALL ER Male: other Time Seen by Provider: 12/31/16 13:19 Source: patient Exam Limitations: no limitations Immunizations: IMMUNIZATION HX Immunizations Up to Date Yes History of Influenza Vaccine Yes Hx Pneumococcal Vaccination No Allergies/Adverse Reactions: Allergies erythromycin base [Erythromycin Base] Allergy (Severe, Verified 12/31/16 13:05) Swelling of Face guanfacine Allergy (Intermediate, Verified 12/31/16 13:05) Swelling of Throat Penicillins Allergy (Intermediate, Verified 12/31/16 13:05) Swelling of Tongue ibuprofen Allergy (Verified 12/31/16 13:05) Home Medications: HOME MEDICATIONS Dextroamphetamine/Amphetamine [Adderall 20 mg Tablet] 30 mg PO BID 10/08/14 [ Last Taken 10/08/14 09:00] Haloperidol [Haldol] 5 mg PO BID 06/21/16 [Last Taken Unknown] Mirtazapine [Mirtazapine (Remeron)] 15 mg PO DAILY 11/08/16 [Last Taken Unknown] Prazosin HCl 2 mg PO 11/08/16 [Last Taken Unknown] - History of Present Illness Narrative: Patient was playing baseball with his son. He missed the ball and it hit him in the groin midline. The pain dropped him to the ground, he was nauseated initially, no vomiting. He rates the pain at 8/10, tylenol is not helping, has not tried to urinate yet. On December 11 he had antireflux surgery at [facility], was on pain medications after that but has none left, no abdominal pain Date (Duration): 12/31/16 Time (Timing): 09:00 Timing: Present: constant Quality: Present: severe, aching Review of Systems - Review of Systems Constitutional: Present: See HPI, recent illness. Absent: fever Respiratory: Absent: shortness of breath Cardiology: Absent: chest pain Gastrointestinal/Abdominal: Present: See HPI, nausea. Absent: vomiting, diarrhea Genitourinary: Present: See HPI Neurological: Absent: headache - Patient's Past Medical History Patient History - Medical: ADHD, Anxiety, Depression, GERD, Seizures, Other Patient History - Cardiac/Respiratory: No pertinent hx Patient History - Cancer: No Hx of Cancer Patient History - Surgical Procedures: EGD, Other, Hernia Repair Patient History - Other: None - Social History Living Situations: home Abuse History: No History of abuse Psych History: Hx of Anxiety, Hx of Depression Does anyone smoke in the home?: Yes Smoking Status: Current every day smoker Alcohol Use: none Drug Use: none - Immunizations Immunizations Up to Date: Yes Hx Pneumococcal Vaccination: No History of Influenza Vaccine: Yes Physical Exam - Physical Exam General Appearance: Present: wd/wn, alert, mild distress Respiratory: Present: no respiratory distress, normal breath sounds, no accessory muscle use, lungs clear Cardiovascular/Chest: Present: regular rate, rhythm, no murmur Gastrointestinal/Abdominal: Present: normal bowel sounds, nontender, nondistended, soft Male Genitals Exam: Present: normal genitalia, other - pubic very tender to touch, no obvious swelling or skin changes. Absent: scrotum tenderness (R), scrotum tenderness (L), urethral discharge Neurological Exam: Present: alert, oriented, normal mood/affect Skin Exam: Present: normal color, warm/dry ED Progress - Results and Orders Patient's Lab Results:: I have reviewed the patient's lab results. - Vital Signs Patient's Vital Signs:: I have reviewed the patient's vital signs. Vital Signs: Vital Signs 12/31/16 13:01 Temperature 36.7 C Pulse Rate 118 H Respiratory 16 Rate Blood Pressure 146/81 O2 Sat by Pulse 97 Oximetry - Progress/Reassessment Chief Complaint: Genitourinary Problem Progress Note-Subjective: 12/31/16 13:47 patient was able to urinate 12/31/16 14:30 patient comfortable, discussed normal urine results Departure Clinical Impression: Contusion Qualifiers: Encounter type: initial encounter Contusion area: pelvic area Qualified Code(s) : S30.0XXA - Contusion of lower back and pelvis, initial encounter - Departure Disposition: Home self-care Condition: Good Instructions: Contusion, [id number] Additional Instructions: follow up with your doctor as needed
[2016-12-31 13:44] LABS: Urine Bilirubin Negative (NEGATIVE); Urine Blood Negative /ul (NEGATIVE); Urine Ketone Negative (NEGATIVE); Urine Nitrite Negative (NEGATIVE); Urine Protein Negative (NEGATIVE); Urine Specific Gravity >=1.030 SP.GR. (1.005-1.030); Urine Urobilinogen Normal (NORMAL); Urine pH 6.5 pH (5.0-7.0)
[2016-12-31] MEDS ORDERED: oxyCODONE HCL/ACETAMINOPHEN 1 TAB TABLET PO ONE (13:47)
[2016-12-31] MEDS ORDERED: oxyCODONE HCL/ACETAMINOPHEN 1 TAB TABLET ONE (13:48)
[2016-12-31 14:03] LABS: Urine Appearance Clear; Urine Bacteria None Seen; Urine Color Yellow; Urine RBC None Seen /hpf (0-5); Urine WBC None Seen /hpf (0-5)
== END 2016-12-31 14:34 | disposition home or self-care (01) ==
LOC: ER 12:57
DX: S30.0XXA Contusion of lower back and pelvis, initial encounter (principal); F17.200 Nicotine dependence, unspecified, uncomplicated; W21.03XA Struck by baseball, initial encounter; Y93.64 Activity, baseball